=== PATIENT | male | born 1955 | race Two or more races ===

== ENCOUNTER → 2021-12-08 | Outpatient (CLI) | payer OTHER, MEDICAID | END | disposition home or self-care (01) | LOC: LAB 11:37 | PROVIDERS: ATTEND Urology | DX: N40.0 Benign prostatic hyperplasia without lower urinary tract symptoms (principal); R93.5 Abnormal findings on diagnostic imaging of other abdominal regions, including retroperitoneum | CPT/HCPCS: 84153 ==

== ENCOUNTER → 2021-12-09 | Outpatient (CLI) | payer OTHER, MEDICAID ==
[2021-12-09 13:17] LABS: Urine Bacteria FEW /hpf (None Seen); Urine Blood Negative /uL (Negative); Urine WBC 5 /hpf (0 - 3)
== END | disposition home or self-care (01) ==
LOC: LAB 12:43
PROVIDERS: ATTEND Urology
DX: N39.0 Urinary tract infection, site not specified (principal)
CPT/HCPCS: 81001; 87086

== ENCOUNTER → 2023-01-11 | Outpatient (CLI) | payer OTHER, MEDICAID ==
[2023-01-11 10:29] LABS: Basophils # (auto) 0 10 ^3/uL (0-0.2); Monocytes # (auto) 0.8 10 ^3/uL (0-1.3); Nucleated Red Blood Cells % 0.1 %; Red Blood Cells 6.47 10^6/uL (4.5-5.90)
[2023-01-11 10:32] LABS: Basophils % (auto) 0.3 % (0.0-2.0); Eosinophils # (auto) 0.3 10 ^3/uL (0-0.8); Hematocrit 48.3 % (41.0-53.0); Hemoglobin 15.7 g/dL (13.5-17.5); Lymphocytes # (auto) 2.5 10 ^3/uL (0.4-5.4); Lymphocytes % (auto) 36.1 % (10.0-50.0); Mean Corpuscular Hemoglobin 24.2 pg (28.0-32.0); Mean Corpuscular Hgb Conc. 32.5 g/dL (32.0-36.0); Mean Corpuscular Volume 74.6 fL (80.0-100.0); Neutrophils # (auto) 3.4 10 ^3/uL (1.6-8.6); Neutrophils % (auto) 48.6 % (37.0-80.0); Red Cell Distribution Width 15.7 % (11.8-14.3)
[2023-01-11 11:02] LABS: Chloride 108 mmol/L (98-107); Potassium 3.9 mmol/L (3.5-5.1); Sodium 142 mmol/L (136-145)
[2023-01-11 11:03] LABS: Anion Gap 4 (5-15); Calcium 8.8 mg/dL (8.5-10.1); Carbon Dioxide 30 mmol/L (20-30)
[2023-01-11 11:08] LABS: BUN/Creatinine Ratio 8.2 (10.0-20.0); Blood Urea Nitrogen 6 mg/dL (9-23); Glucose 100 mg/dL (74-106)
== END | disposition home or self-care (01) ==
LOC: LAB 10:14
PROVIDERS: ATTEND Urology
DX: N40.1 Benign prostatic hyperplasia with lower urinary tract symptoms (principal); R35.1 Nocturia
CPT/HCPCS: 36415; 80048; 84153; 85025

== ENCOUNTER → 2023-04-10 | Outpatient (CLI) | payer OTHER, MEDICAID ==
[~2023-04-10] MED LIST: METH2.5T PO
== END | disposition home or self-care (01) ==
LOC: XYW 09:50
PROVIDERS: ATTEND Student in an Organized Health Care Education/Training Program
DX: L60.3 Nail dystrophy (principal)
CPT/HCPCS: 93925

== ENCOUNTER 2023-04-17 06:30 | Day surgery (SDC) | payer OTHER, MEDICAID ==
[2023-04-12 11:18] LABS: Basophils # (auto) 0 10 ^3/uL (0-0.2); Basophils % (auto) 0.6 % (0.0-2.0); Eosinophils # (auto) 0.3 10 ^3/uL (0-0.8); Eosinophils % (auto) 5.1 % (0.0-7.0); Hematocrit 48.7 % (41.0-53.0); Hemoglobin 15.5 g/dL (13.5-17.5); Lymphocytes % (auto) 31.9 % (10.0-50.0); Mean Corpuscular Hemoglobin 23.3 pg (28.0-32.0); Mean Corpuscular Hgb Conc. 31.7 g/dL (32.0-36.0); Mean Corpuscular Volume 73.6 fL (80.0-100.0); Monocytes # (auto) 0.7 10 ^3/uL (0-1.3); Neutrophils # (auto) 3.3 10 ^3/uL (1.6-8.6); Neutrophils % (auto) 51.4 % (37.0-80.0); Nucleated Red Blood Cells % 0.2 %; Red Blood Cells 6.62 10^6/uL (4.5-5.90); Red Cell Distribution Width 15.7 % (11.8-14.3); White Blood Cell 6.4 10^3/uL (4.4-10.8)
[2023-04-12 11:36] LABS: INR 1.04 (0.9-1.15); Partial Thromboplastin Time 27.9 SEC (24.5-34.5); Prothrombin Time 10.9 sec (9.3-11.8)
[2023-04-12 11:44] LABS: Alanine Aminotransferase 43 U/L (7-40); Albumin 4.2 g/dL (3.2-4.8); Alkaline Phosphatase 45 U/L (46-116); Anion Gap 8 (5-15); Aspartate Aminotransferase 37 U/L (13-40); BUN/Creatinine Ratio 8.4 (10.0-20.0); Blood Urea Nitrogen 7 mg/dL (9-23); Calcium 9.4 mg/dL (8.5-10.1); Carbon Dioxide 28 mmol/L (20-30); Chloride 105 mmol/L (98-107); Glucose 98 mg/dL (74-106); Potassium 3.9 mmol/L (3.5-5.1); Sodium 141 mmol/L (136-145)
[2023-04-12 11:45] LABS: Bilirubin, Total 0.8 mg/dL (0.2-1.0); Total Protein 7.7 g/dL (5.7-8.2)
[2023-04-12 12:04] LABS: Urine Bacteria FEW /hpf (None Seen); Urine Blood Negative /uL (Negative); Urine Clarity Clear (Clear); Urine Color Yellow (Yellow); Urine Mucus FEW (None Seen); Urine Protein, UAD Negative (Negative); Urine Specific Gravity 1.021 (1.001-1.035); Urine Urobilinogen Normal (Negative); Urine WBC <1 /hpf (0 - 3); Urine pH 5.5 (5.0-8.0)
[~2023-04-17] VITALS: Ht 167.6 cm; Wt 93.0 kg
[2023-04-17] MEDS ORDERED: ceFAZolin 2 GM/D5W100ml 0 ML IV ONE (06:44)
[2023-04-17 06:50] VITALS: TEMP 98.1
[2023-04-17] MEDS ORDERED: CIPROFLOXACIN 400MG/200ML 200 ML IV ONE (07:00)
[2023-04-17] MEDS ORDERED: fentaNYL CITRATE 100 MCG/2 ML VL ONE (07:01)
[2023-04-17] MEDS ORDERED: PROPOFOL 10 MG/ML 20 ML IV ONE (07:02)
[2023-04-17] MEDS ORDERED: ONDANSETRON HCL 4 MG/2 ML VIAL ONE (07:53)
[2023-04-17] MEDS ORDERED: DexAMETHasone SOD PHOS 10MG/1ML VIAL INJ ONE (07:53)
[2023-04-17] MEDS ORDERED: ePHEDrine SULFATE 50 MG/ML AMP ONE (07:59)
[2023-04-17] MEDS ORDERED: MEPERIDINE HCL (25 MG/ML) 1ML VIAL ONE (08:16)
[2023-04-17 09:01] VITALS: O2SAT 97
[2023-04-17] MEDS ORDERED: MEPERIDINE HCL (25 MG/ML) 1ML VIAL IV PRN (09:15)
[2023-04-17] MEDS ORDERED: ONDANSETRON HCL 4 MG/2 ML VIAL IV PRN (09:15)
[2023-04-17] MEDS ORDERED: HYDROmorphone HCL 2 MG/ML VL/or syr ONE (09:27)
[2023-04-17] MEDS: HYDROmorphone HCL 2 MG/ML VL/or syr IV PRN ×2 (09:30→10:06)
[2023-04-17 10:31] VITALS: BP 122/98; PULSE 63; RESP 17; O2SAT 95
== END 2023-04-17 10:42 | disposition home or self-care (01) ==
LOC: SUR 06:30
PROVIDERS: ATTEND Urology
DX: N40.1 Benign prostatic hyperplasia with lower urinary tract symptoms (principal); N13.8 Other obstructive and reflux uropathy; Z87.891 Personal history of nicotine dependence; Z98.890 Other specified postprocedural states
CPT/HCPCS: 36415; 52601; 80053; 81001; 85025; 85610; 85730; 87086; J0744; J1100; J1170; J2175; J2405; J2704; J3010

== ENCOUNTER → 2023-05-07 | Outpatient (CLI) | payer OTHER, MEDICAID ==
[2023-05-07 17:03] LABS: Urine Amorphous Crystal FEW /hpf (None Seen); Urine Bacteria NONE SEEN /hpf (None Seen); Urine Blood 3+ /uL (Negative); Urine Clarity CLOUDY (Clear); Urine Color Red (Yellow); Urine Protein, UAD 2+ (Negative); Urine Specific Gravity 1.022 (1.001-1.035); Urine Urobilinogen Normal (Negative); Urine WBC 90 /hpf (0 - 3); Urine pH 5.5 (5.0-8.0)
== END | disposition home or self-care (01) ==
LOC: LAB 16:11
PROVIDERS: ATTEND Urology
DX: N39.0 Urinary tract infection, site not specified (principal)
CPT/HCPCS: 81001; 87086

== ENCOUNTER 2023-06-11 09:44 | Inpatient (IN) | payer OTHER, MEDICAID ==
[~2023-06-11] VITALS: Ht 167.6 cm; Wt 93.0 kg
[2023-06-11 11:34] LABS: Basophils # (auto) 0 10 ^3/uL (0-0.2); Nucleated Red Blood Cells % 0.1 %
[2023-06-11 11:36] LABS: Basophils % (auto) 0.1 % (0.0-2.0); Eosinophils # (auto) 0.1 10 ^3/uL (0-0.8); Eosinophils % (auto) 0.3 % (0.0-7.0); Hematocrit 49.1 % (41.0-53.0); Hemoglobin 15.4 g/dL (13.5-17.5); Lymphocytes # (auto) 1.5 10 ^3/uL (0.4-5.4); Lymphocytes % (auto) 7.8 % (10.0-50.0); Mean Corpuscular Hemoglobin 23.2 pg (28.0-32.0); Mean Corpuscular Hgb Conc. 31.4 g/dL (32.0-36.0); Mean Corpuscular Volume 73.9 fL (80.0-100.0); Monocytes # (auto) 1.7 10 ^3/uL (0-1.3); Neutrophils # (auto) 15.6 10 ^3/uL (1.6-8.6); Neutrophils % (auto) 82.8 % (37.0-80.0); Red Blood Cells 6.65 10^6/uL (4.5-5.90); White Blood Cell 18.9 10^3/uL (4.4-10.8)
[2023-06-11 11:39] LABS: Chloride 106 mmol/L (98-107); Potassium 3.6 mmol/L (3.5-5.1); Sodium 137 mmol/L (136-145)
[2023-06-11 11:40] LABS: Anion Gap 6 (5-15); Calcium 8.9 mg/dL (8.5-10.1); Carbon Dioxide 25 mmol/L (20-30)
[2023-06-11 11:45] LABS: BUN/Creatinine Ratio 12.1 (10.0-20.0); Blood Urea Nitrogen 11 mg/dL (9-23); Glucose 109 mg/dL (74-106)
[2023-06-11 11:50] LABS: COVID19 ANTIGEN SOFIA FIA NEGATIVE (NEGATIVE)
[2023-06-11 11:51] LABS: Rapid Influenza A Negative (Negative); Rapid Influenza B Negative (Negative)
[2023-06-11 12:17] LABS: Urine Bacteria MANY /hpf (None Seen); Urine Blood 3+ /uL (Negative); Urine Clarity CLOUDY (Clear); Urine Color Yellow (Yellow); Urine Protein, UAD 2+ (Negative); Urine Urobilinogen Normal (Negative); Urine WBC 2381 /hpf (0 - 3); Urine WBC Clumps PRESENT /hpf (None Seen); Urine pH 5.5 (5.0-8.0)
[2023-06-11] MEDS ORDERED: PROP40TA6 PO (15:11)
[2023-06-11] MEDS ORDERED: ONDANSETRON HCL 4 MG/2 ML VIAL IV PRN (15:15)
[2023-06-11] MEDS ORDERED: VANCOMYCIN PER PHARMACY 0 MG IV SCH (15:15)
[2023-06-12] VITALS (8 sets, daily range): BP systolic 91–147; BP diastolic 43–73; PULSE 57–100; RESP 16–20; TEMP 98.4–100.2; O2SAT 92–98
[2023-06-12] MEDS: SODIUM CHLORIDE 0.9% 1,000 ML IV SCH (01:15)
[2023-06-12] MEDS: CEFEPIME 1GM/ 50ML 50 ML IV SCH (04:41)
[2023-06-12] MEDS: HYDROcodone-ACET 5/325MG TAB PO PRN (05:15)
[2023-06-12 08:55] LABS: Basophils # (auto) 0 10 ^3/uL (0-0.2); Eosinophils # (auto) 0.1 10 ^3/uL (0-0.8); Eosinophils % (auto) 0.3 % (0.0-7.0); Nucleated Red Blood Cells % 0.1 %; Red Cell Distribution Width 16.2 % (11.8-14.3)
[2023-06-12 08:57] LABS: Basophils % (auto) 0.2 % (0.0-2.0); Hematocrit 49.5 % (41.0-53.0); Hemoglobin 15.6 g/dL (13.5-17.5); Lymphocytes # (auto) 3.3 10 ^3/uL (0.4-5.4); Mean Corpuscular Hemoglobin 23.4 pg (28.0-32.0); Mean Corpuscular Hgb Conc. 31.6 g/dL (32.0-36.0); Mean Corpuscular Volume 74.2 fL (80.0-100.0); Monocytes # (auto) 2.1 10 ^3/uL (0-1.3); Neutrophils # (auto) 15.3 10 ^3/uL (1.6-8.6); Neutrophils % (auto) 73.5 % (37.0-80.0); Red Blood Cells 6.68 10^6/uL (4.5-5.90); White Blood Cell 20.8 10^3/uL (4.4-10.8)
[2023-06-12 09:18] LABS: Alanine Aminotransferase 28 U/L (7-40); Albumin 4.3 g/dL (3.2-4.8); Alkaline Phosphatase 56 U/L (46-116); Aspartate Aminotransferase 26 U/L (13-40); BUN/Creatinine Ratio 8.3 (10.0-20.0); Blood Urea Nitrogen 9 mg/dL (9-23); Calcium 9.2 mg/dL (8.5-10.1); Carbon Dioxide 26 mmol/L (20-30); Glucose 144 mg/dL (74-106)
[2023-06-12 09:20] LABS: Bilirubin, Total 1.3 mg/dL (0.2-1.0); Total Protein 8.4 g/dL (5.7-8.2)
[2023-06-12 09:25] LABS: Anion Gap 4 (5-15); Chloride 106 mmol/L (98-107); Sodium 136 mmol/L (136-145)
[2023-06-12] MEDS: VANCOMYCIN 1GM/200ML 200 ML IV ONE ×2 (09:31→19:42)
[2023-06-12] MEDS: PROPRANOLOL HCL 20 MG TAB PO SCH (10:00)
[2023-06-12] MEDS: SODIUM CHLORIDE 0.9% 250 ML IV ONE (15:06)
[2023-06-12] MEDS ORDERED: LATA0.0020 EACHEYE (17:47)
[2023-06-12] MEDS ORDERED: MELO-335 PO (17:47)
[2023-06-12] MEDS ORDERED: LOSA50TA46 PO (17:47)
[2023-06-12] MEDS ORDERED: SOLI10TA39 PO (17:47)
[2023-06-12] MEDS ORDERED: DOCU-94 PO (17:47)
[2023-06-12] MEDS ORDERED: TAMS0.4C36 PO (17:47)
[2023-06-12] MEDS: ACETAMINOPHEN 325 MG TAB PO PRN (22:08)
[2023-06-13] VITALS (7 sets, daily range): BP systolic 107–130; BP diastolic 71–85; PULSE 86–95; RESP 14–18; TEMP 98–100.6; O2SAT 95–98
[2023-06-13] MEDS ORDERED: VANCOMYCIN 750mg/150ml 150 ML IV SCH (04:00)
[2023-06-13 06:09] LABS: Basophils # (auto) 0 10 ^3/uL (0-0.2); Eosinophils # (auto) 0 10 ^3/uL (0-0.8); Hematocrit 44.3 % (41.0-53.0); Hemoglobin 14.3 g/dL (13.5-17.5); Lymphocytes # (auto) 1.1 10 ^3/uL (0.4-5.4); Lymphocytes % (auto) 13.9 % (10.0-50.0); Mean Corpuscular Volume 73.4 fL (80.0-100.0); Monocytes # (auto) 0.6 10 ^3/uL (0-1.3); Neutrophils # (auto) 6.1 10 ^3/uL (1.6-8.6); White Blood Cell 7.8 10^3/uL (4.4-10.8)
[2023-06-13 06:11] LABS: Basophils % (auto) 0.1 % (0.0-2.0); Eosinophils % (auto) 0.4 % (0.0-7.0); Mean Corpuscular Hemoglobin 23.8 pg (28.0-32.0); Mean Corpuscular Hgb Conc. 32.4 g/dL (32.0-36.0); Monocytes % (auto) 7.6 % (0.0-12.0); Red Blood Cells 6.03 10^6/uL (4.5-5.90); Red Cell Distribution Width 15.6 % (11.8-14.3)
[2023-06-13 06:17] LABS: Chloride 106 mmol/L (98-107); Potassium 3.5 mmol/L (3.5-5.1); Sodium 138 mmol/L (136-145)
[2023-06-13 06:18] LABS: Anion Gap 7 (5-15); Calcium 8.6 mg/dL (8.5-10.1); Carbon Dioxide 25 mmol/L (20-30)
[2023-06-13 06:23] LABS: BUN/Creatinine Ratio 7.9 (10.0-20.0); Blood Urea Nitrogen 7 mg/dL (9-23); Glucose 97 mg/dL (74-106)
[2023-06-14 05:00] VITALS: BP 106/53; PULSE 92; RESP 18; TEMP 98; O2SAT 96
[2023-06-14 07:31] LABS: Chloride 106 mmol/L (98-107); Potassium 3.9 mmol/L (3.5-5.1); Sodium 138 mmol/L (136-145)
[2023-06-14 07:32] LABS: Anion Gap 5 (5-15); Carbon Dioxide 27 mmol/L (20-30)
[2023-06-14 07:33] LABS: Calcium 8.7 mg/dL (8.5-10.1)
[2023-06-14 07:34] LABS: Hematocrit 45.7 % (41.0-53.0); Hemoglobin 14.6 g/dL (13.5-17.5); Mean Corpuscular Hemoglobin 23.4 pg (28.0-32.0); Mean Corpuscular Hgb Conc. 31.9 g/dL (32.0-36.0); Mean Corpuscular Volume 73.3 fL (80.0-100.0); Red Blood Cells 6.23 10^6/uL (4.5-5.90); Red Cell Distribution Width 15.7 % (11.8-14.3); White Blood Cell 6.1 10^3/uL (4.4-10.8)
[2023-06-14 07:37] LABS: Glucose 100 mg/dL (74-106)
[2023-06-14 07:38] LABS: BUN/Creatinine Ratio 6.7 (10.0-20.0); Blood Urea Nitrogen 6 mg/dL (9-23)
[2023-06-14 07:47] LABS: Band Neutrophils % (manual) 0; Basophils % (manual) 0 (0.0-2.0); Blast Cells 0; Metamyelocytes % 0; Myelocytes % 0; Promyelocytes % 0; Reactive Lymphocytes 0
[2023-06-14 08:19] LABS: Eosinophils % (manual) 2 (0-7); Lymphocytes % (manual) 17 (10.0-50.0); Monocytes % (manual) 19 (0-12); Platelet Estimate Decreased
[2023-06-14 09:07] VITALS: BP 120/83; PULSE 77; RESP 18; TEMP 98.7; O2SAT 98
[2023-06-14 13:13] VITALS: BP 117/76; PULSE 86; RESP 18; TEMP 98.3; O2SAT 95
[2023-06-14 17:41] VITALS: BP 128/80; PULSE 90; RESP 18; TEMP 97.1; O2SAT 97
[2023-06-14 20:00] VITALS: PULSE 89; RESP 18; O2SAT 95
[2023-06-14 21:47] VITALS: BP 113/68; PULSE 90; RESP 20; TEMP 99.4; O2SAT 93
[2023-06-15] VITALS (7 sets, daily range): BP systolic 101–128; BP diastolic 59–79; PULSE 73–79; RESP 16–20; TEMP 97.5–98.4; O2SAT 93–98
[2023-06-15] MEDS: CEFEPIME 1GM/ 50ML 50 ML IV SCH (04:27)
[2023-06-15 05:58] LABS: Basophils # (auto) 0 10 ^3/uL (0-0.2); Basophils % (auto) 0.3 % (0.0-2.0); Eosinophils # (auto) 0.3 10 ^3/uL (0-0.8); Eosinophils % (auto) 4.2 % (0.0-7.0); Hematocrit 48.8 % (41.0-53.0); Hemoglobin 15.4 g/dL (13.5-17.5); Lymphocytes # (auto) 2.3 10 ^3/uL (0.4-5.4); Lymphocytes % (auto) 34.6 % (10.0-50.0); Mean Corpuscular Hemoglobin 23.1 pg (28.0-32.0); Mean Corpuscular Hgb Conc. 31.6 g/dL (32.0-36.0); Mean Corpuscular Volume 73.1 fL (80.0-100.0); Monocytes # (auto) 1.2 10 ^3/uL (0-1.3); Neutrophils # (auto) 2.8 10 ^3/uL (1.6-8.6); Neutrophils % (auto) 41.9 % (37.0-80.0); Nucleated Red Blood Cells % 0.1 %; Red Blood Cells 6.67 10^6/uL (4.5-5.90); Red Cell Distribution Width 15.8 % (11.8-14.3); White Blood Cell 6.6 10^3/uL (4.4-10.8)
[2023-06-15 06:15] LABS: Calcium 8.9 mg/dL (8.5-10.1); Chloride 107 mmol/L (98-107); Potassium 3.7 mmol/L (3.5-5.1); Sodium 139 mmol/L (136-145)
[2023-06-15 06:16] LABS: Anion Gap 6 (5-15); Carbon Dioxide 26 mmol/L (20-30)
[2023-06-15 06:21] LABS: BUN/Creatinine Ratio 7.7 (10.0-20.0); Blood Urea Nitrogen 6 mg/dL (9-23); Glucose 96 mg/dL (74-106)
[2023-06-15] MEDS: ERTAPENEM SOD INJ 1 GM in SODIUM CHL 0.9% 50 ML IV SCH (18:45)
[2023-06-16 05:00] VITALS: BP 130/77; PULSE 72; RESP 18; TEMP 97.9; O2SAT 97
[2023-06-16 08:02] VITALS: PULSE 81; RESP 20; O2SAT 96
[2023-06-16 09:00] VITALS: BP 130/78; PULSE 81; RESP 20; TEMP 98.6; O2SAT 96
[2023-06-16 13:00] VITALS: BP 125/76; PULSE 60; RESP 22; TEMP 98.4; O2SAT 94
[2023-06-16 17:00] VITALS: BP 96/55; PULSE 57; RESP 18; TEMP 98.4; O2SAT 96
[2023-06-16 22:00] VITALS: BP 103/70; PULSE 68; RESP 16; TEMP 97.8; O2SAT 97
[2023-06-17] VITALS (7 sets, daily range): BP systolic 99–118; BP diastolic 57–83; PULSE 74–85; RESP 16–20; TEMP 97.4–97.8; O2SAT 93–96
[2023-06-17] MEDS: DOCUSATE SOD 100 MG CAP PO PRN (09:04)
[2023-06-18 05:00] VITALS: BP 92/59; PULSE 74; RESP 17; TEMP 97.6; O2SAT 96
[2023-06-18 11:02] VITALS: BP 116/77; PULSE 89; RESP 18; TEMP 97.3; O2SAT 97
[2023-06-18 11:04] VITALS: BP 116/77; PULSE 89; RESP 18; TEMP 97.3; O2SAT 97
[2023-06-18 17:08] VITALS: BP 123/75; PULSE 75; RESP 18; TEMP 97.1; O2SAT 96
== END 2023-06-18 18:00 | disposition home health service (06) | DRG 872 ==
LOC: ER 09:44 → WEST WING 15:11 → OVERFLOW 15:11 → WEST WING 06-12 04:40
PROVIDERS: ADMIT Nurse Practitioner Family; ATTEND Nurse Practitioner Acute Care
PROC: 05HF33Z Insertion of Infusion Device into Left Cephalic Vein, Percutaneous Approach (ICD-10-PCS; principal; 2023-06-16)
DX: A41.89 Other specified sepsis (principal); Z16.12 Extended spectrum beta lactamase (ESBL) resistance; I10 Essential (primary) hypertension; N30.90 Cystitis, unspecified without hematuria; E66.9 Obesity, unspecified; E11.9 Type 2 diabetes mellitus without complications; Z20.822 Contact with and (suspected) exposure to COVID-19; Z68.32 Body mass index [BMI] 32.0-32.9, adult; Z90.79 Acquired absence of other genital organ(s); Z87.891 Personal history of nicotine dependence; Z85.038 Personal history of other malignant neoplasm of large intestine; N40.1 Benign prostatic hyperplasia with lower urinary tract symptoms
CPT/HCPCS: 36415; 76775; 80048; 80053; 80202; 81001; 83605; 85007; 85025; 85027; 87086; 87088; 87186; 87426; 87804; G0378; J1335

== ENCOUNTER 2023-11-16 12:14 | Inpatient (IN) | payer OTHER, MEDICAID ==
[~2023-11-16] VITALS: Ht 167.6 cm; Wt 88.2 kg
[~2023-11-16 12:14] MED LIST changes: +DOCU-94 PO; +LATA0.0020 EACHEYE; +LOSA-534 PO; +MELO15TA29 PO; +PROP40TA6 PO; +SOLI10TA39 PO; +TAMS0.4C36 PO
[2023-11-16 13:10] LABS: Urine Bacteria MANY /hpf (None Seen); Urine Blood 2+ /uL (Negative); Urine Clarity Turbid (Clear); Urine Mucus FEW (None Seen); Urine Protein, UAD 1+ (Negative); Urine Specific Gravity 1.023 (1.001-1.035); Urine Urobilinogen Normal (Negative); Urine WBC 637 /hpf (0 - 3); Urine pH 5.5 (5.0-9.0)
[2023-11-16] MEDS: SODIUM CHLORIDE 0.9% 500 ML IV ONE (13:21)
[2023-11-16 13:23] LABS: Urine Color Light-Yellow (Yellow)
[2023-11-16 13:44] VITALS: PULSE 109; RESP 16; O2SAT 97
[2023-11-16 14:03] LABS: Basophils # (auto) 0 10 ^3/uL (0-0.2); Basophils % (auto) 0.1 % (0.0-2.0); Eosinophils # (auto) 0 10 ^3/uL (0-0.8); Eosinophils % (auto) 0.2 % (0.0-7.0); Mean Corpuscular Hemoglobin 24.4 pg (28.0-32.0); Monocytes # (auto) 1.3 10 ^3/uL (0-1.3)
[2023-11-16 14:04] LABS: Hematocrit 48.8 % (41.0-53.0); Hemoglobin 16.2 g/dL (13.5-17.5); Lymphocytes # (auto) 1.5 10 ^3/uL (0.4-5.4); Lymphocytes % (auto) 12.4 % (10.0-50.0); Mean Corpuscular Hgb Conc. 33.1 g/dL (32.0-36.0); Mean Corpuscular Volume 73.6 fL (80.0-100.0); Monocytes % (auto) 10.9 % (0.0-12.0); Neutrophils % (auto) 76.4 % (37.0-80.0); Red Blood Cells 6.63 10^6/uL (4.5-5.90); White Blood Cell 11.8 10^3/uL (4.4-10.8)
[2023-11-16] MEDS: SODIUM CHLORIDE 0.9% 1,000 ML IV ONE (14:15)
[2023-11-16] MEDS: ONDANSETRON HCL 4 MG/2 ML VIAL IV ONE (14:15)
[2023-11-16] MEDS: cefTRIAXone 1GM/50ML D5W 50 ML IV ONE (14:16)
[2023-11-16] MEDS: MORPHINE SULFATE 4 MG/ML SYR/VIAL IV ONE (14:17)
[2023-11-16 14:20] LABS: Large Platelets FEW; Platelet Estimate Decreased
[2023-11-16] MEDS ORDERED: ONDANSETRON HCL 4 MG/2 ML VIAL IV PRN (15:00)
[2023-11-16] MEDS: ACETAMINOPHEN 325 MG TAB PO PRN (20:19)
[2023-11-16 20:20] VITALS: PULSE 103; RESP 16; O2SAT 95
[2023-11-16 23:39] VITALS: BP 140/75; PULSE 80; RESP 18; TEMP 98.3; O2SAT 91
[2023-11-17] VITALS (9 sets, daily range): BP systolic 114–146; BP diastolic 67–88; PULSE 63–90; RESP 16–20; TEMP 98.1–99.1; O2SAT 90–95
[2023-11-17] MEDS: TEMAZEPAM 15 MG CAP PO PRN (02:05)
[2023-11-17 06:46] LABS: Basophils # (auto) 0 10 ^3/uL (0-0.2); Eosinophils # (auto) 0.1 10 ^3/uL (0-0.8); Eosinophils % (auto) 0.9 % (0.0-7.0); Lymphocytes # (auto) 2.1 10 ^3/uL (0.4-5.4)
[2023-11-17 06:49] LABS: Basophils % (auto) 0.1 % (0.0-2.0); Hematocrit 45.6 % (41.0-53.0); Hemoglobin 14.8 g/dL (13.5-17.5); Mean Corpuscular Hemoglobin 24.1 pg (28.0-32.0); Mean Corpuscular Hgb Conc. 32.4 g/dL (32.0-36.0); Mean Corpuscular Volume 74.3 fL (80.0-100.0); Monocytes # (auto) 1.9 10 ^3/uL (0-1.3); Monocytes % (auto) 16.8 % (0.0-12.0); Neutrophils # (auto) 7.4 10 ^3/uL (1.6-8.6); Neutrophils % (auto) 64.2 % (37.0-80.0); Red Blood Cells 6.14 10^6/uL (4.5-5.90); White Blood Cell 11.5 10^3/uL (4.4-10.8)
[2023-11-17 06:55] LABS: Chloride 107 mmol/L (98-107); Potassium 3.8 mmol/L (3.5-5.1); Sodium 139 mmol/L (136-145)
[2023-11-17 06:56] LABS: Anion Gap 4 (5-15); Calcium 8.9 mg/dL (8.7-10.4); Carbon Dioxide 28 mmol/L (20-30)
[2023-11-17 07:01] LABS: BUN/Creatinine Ratio 10.1 (10.0-20.0); Blood Urea Nitrogen 8 mg/dL (9-23); Glucose 104 mg/dL (74-106)
[2023-11-17] MEDS: LOSARTAN POTASSIUM 50 MG TAB PO SCH (09:50)
[2023-11-17] MEDS: cefTRIAXone 1GM/50ML D5W 50 ML IV SCH (09:50)
[2023-11-17 11:53] LABS: Alanine Aminotransferase 25 U/L (7-40); Alkaline Phosphatase 44 U/L (46-116); Aspartate Aminotransferase 20 U/L (13-40)
[2023-11-17] MEDS: ERTAPENEM SOD INJ 1 GM in SODIUM CHL 0.9% 50 ML IV SCH (13:30)
[2023-11-17] MEDS: TAMSULOSIN HYDROCHLORIDE 0.4 MG CAP PO SCH (18:11)
[2023-11-18] VITALS (8 sets, daily range): BP systolic 116–148; BP diastolic 71–84; PULSE 72–92; RESP 17–20; TEMP 98–98.6; O2SAT 95–100
[2023-11-18 06:14] LABS: Basophils # (auto) 0 10 ^3/uL (0-0.2); Basophils % (auto) 0.2 % (0.0-2.0); Eosinophils # (auto) 0.2 10 ^3/uL (0-0.8); Nucleated Red Blood Cells % 0.1 %
[2023-11-18 06:27] LABS: Hematocrit 46.6 % (41.0-53.0); Hemoglobin 15.1 g/dL (13.5-17.5); Lymphocytes # (auto) 1.9 10 ^3/uL (0.4-5.4); Lymphocytes % (auto) 22.7 % (10.0-50.0); Mean Corpuscular Hemoglobin 24.2 pg (28.0-32.0); Mean Corpuscular Hgb Conc. 32.5 g/dL (32.0-36.0); Mean Corpuscular Volume 74.4 fL (80.0-100.0); Monocytes # (auto) 1.4 10 ^3/uL (0-1.3); Monocytes % (auto) 16.7 % (0.0-12.0); Neutrophils # (auto) 4.8 10 ^3/uL (1.6-8.6); Neutrophils % (auto) 58.4 % (37.0-80.0); Red Blood Cells 6.26 10^6/uL (4.5-5.90); Red Cell Distribution Width 15.8 % (11.8-14.3); White Blood Cell 8.2 10^3/uL (4.4-10.8)
[2023-11-18 07:00] LABS: Alanine Aminotransferase 21 U/L (7-40); Alkaline Phosphatase 46 U/L (46-116); Anion Gap 6 (5-15); BUN/Creatinine Ratio 9.3 (10.0-20.0); Blood Urea Nitrogen 7 mg/dL (9-23); Calcium 9.1 mg/dL (8.7-10.4); Carbon Dioxide 26 mmol/L (20-30); Chloride 105 mmol/L (98-107); Glucose 102 mg/dL (74-106); Potassium 3.6 mmol/L (3.5-5.1); Sodium 137 mmol/L (136-145)
[2023-11-18 07:01] LABS: Albumin 3.8 g/dL (3.2-4.8); Aspartate Aminotransferase 17 U/L (13-40); Bilirubin, Total 0.8 mg/dL (0.2-1.0); Total Protein 7.5 g/dL (5.7-8.2)
[2023-11-18] MEDS ORDERED: ERTAPENEM SOD INJ 1 GM in SODIUM CHL 0.9% 50 ML IV SCH (10:00)
[2023-11-18] MEDS: KETOROLAC TROMETH 30 MG/ML 1ML VIAL IV PRN (12:41)
[2023-11-18] MEDS: cefTRIAXone 1GM/50ML D5W 50 ML IV ONE (14:09)
[2023-11-19] VITALS (7 sets, daily range): BP systolic 137–155; BP diastolic 74–90; PULSE 75–96; RESP 17–18; TEMP 98–98.6; O2SAT 93–98
[2023-11-19 06:07] LABS: Alanine Aminotransferase 22 U/L (7-40); Alkaline Phosphatase 45 U/L (46-116); Anion Gap 7 (5-15); BUN/Creatinine Ratio 10.5 (10.0-20.0); Blood Urea Nitrogen 8 mg/dL (9-23); Carbon Dioxide 27 mmol/L (20-30); Chloride 105 mmol/L (98-107); Glucose 104 mg/dL (74-106); Potassium 3.6 mmol/L (3.5-5.1); Sodium 139 mmol/L (136-145)
[2023-11-19 06:08] LABS: Albumin 3.6 g/dL (3.2-4.8); Aspartate Aminotransferase 22 U/L (13-40)
[2023-11-19 06:09] LABS: Bilirubin, Total 0.6 mg/dL (0.2-1.0); Total Protein 7.3 g/dL (5.7-8.2)
[2023-11-19 06:23] LABS: Basophils # (auto) 0 10 ^3/uL (0-0.2); Basophils % (auto) 0.2 % (0.0-2.0); Hemoglobin 15.1 g/dL (13.5-17.5); Lymphocytes # (auto) 1.7 10 ^3/uL (0.4-5.4); Neutrophils # (auto) 3.6 10 ^3/uL (1.6-8.6); Nucleated Red Blood Cells % 0.1 %; White Blood Cell 6.5 10^3/uL (4.4-10.8)
[2023-11-19 06:26] LABS: Eosinophils # (auto) 0.2 10 ^3/uL (0-0.8); Eosinophils % (auto) 2.6 % (0.0-7.0); Hematocrit 46.2 % (41.0-53.0); Lymphocytes % (auto) 26.6 % (10.0-50.0); Mean Corpuscular Hemoglobin 24.3 pg (28.0-32.0); Mean Corpuscular Hgb Conc. 32.8 g/dL (32.0-36.0); Mean Corpuscular Volume 74.2 fL (80.0-100.0); Neutrophils % (auto) 55.6 % (37.0-80.0); Red Blood Cells 6.22 10^6/uL (4.5-5.90); Red Cell Distribution Width 15.9 % (11.8-14.3)
[2023-11-19] MEDS: cefTRIAXone 1GM/50ML D5W 50 ML IV SCH (08:49)
[2023-11-19 09:10] LABS: Hepatitis B Surface Antigen Negative (Negative)
[2023-11-19 09:32] LABS: Hepatitis C Antibody Negative (Negative)
[2023-11-20 01:00] VITALS: BP 133/84; PULSE 72; RESP 18; TEMP 97.7; O2SAT 92
[2023-11-20 05:00] VITALS: BP 120/79; PULSE 73; RESP 16; TEMP 97.6; O2SAT 92
[2023-11-20 05:46] LABS: Basophils # (auto) 0 10 ^3/uL (0-0.2); Eosinophils # (auto) 0.1 10 ^3/uL (0-0.8); Mean Corpuscular Hemoglobin 23.8 pg (28.0-32.0); Monocytes # (auto) 0.9 10 ^3/uL (0-1.3); Nucleated Red Blood Cells % 0.1 %; White Blood Cell 5.7 10^3/uL (4.4-10.8)
[2023-11-20 05:50] LABS: Basophils % (auto) 0.4 % (0.0-2.0); Eosinophils % (auto) 2.1 % (0.0-7.0); Hematocrit 46.5 % (41.0-53.0); Lymphocytes # (auto) 1.9 10 ^3/uL (0.4-5.4); Lymphocytes % (auto) 33.2 % (10.0-50.0); Mean Corpuscular Hgb Conc. 32.3 g/dL (32.0-36.0); Mean Corpuscular Volume 73.6 fL (80.0-100.0); Monocytes % (auto) 15.4 % (0.0-12.0); Neutrophils # (auto) 2.8 10 ^3/uL (1.6-8.6); Neutrophils % (auto) 48.9 % (37.0-80.0); Red Blood Cells 6.32 10^6/uL (4.5-5.90); Red Cell Distribution Width 15.7 % (11.8-14.3)
[2023-11-20 06:11] LABS: Alanine Aminotransferase 25 U/L (7-40); Albumin 3.6 g/dL (3.2-4.8); Alkaline Phosphatase 47 U/L (46-116); Anion Gap 5 (5-15); Aspartate Aminotransferase 21 U/L (13-40); BUN/Creatinine Ratio 15.2 (10.0-20.0); Bilirubin, Total 0.5 mg/dL (0.2-1.0); Blood Urea Nitrogen 12 mg/dL (9-23); Carbon Dioxide 31 mmol/L (20-30); Chloride 105 mmol/L (98-107); Glucose 95 mg/dL (74-106); Potassium 3.9 mmol/L (3.5-5.1); Sodium 141 mmol/L (136-145); Total Protein 6.8 g/dL (5.7-8.2)
[2023-11-20 08:00] VITALS: PULSE 90; RESP 17; O2SAT 96
[2023-11-20 09:00] VITALS: BP 124/82; PULSE 78; RESP 17; TEMP 97.9; O2SAT 91
[2023-11-20 13:00] VITALS: BP 129/86; PULSE 70; RESP 17; TEMP 97.7; O2SAT 99
[2023-11-20] MEDS ORDERED: CEFD300C2 PO (14:34)
[2023-11-20 16:15] VITALS: BP 129/86; PULSE 70; RESP 17; TEMP 97.7; O2SAT 99
== END 2023-11-20 17:18 | disposition home or self-care (01) | DRG 872 ==
LOC: ER 12:28 → OVERFLOW 14:52 → EAST 22:42
PROVIDERS: ADMIT Internal Medicine; ATTEND Emergency Medicine
DX: A41.51 Sepsis due to Escherichia coli [E. coli] (principal); N39.0 Urinary tract infection, site not specified; I10 Essential (primary) hypertension; K74.60 Unspecified cirrhosis of liver; E86.0 Dehydration; F10.10 Alcohol abuse, uncomplicated; Y90.9 Presence of alcohol in blood, level not specified; Z88.1 Allergy status to other antibiotic agents; Z79.899 Other long term (current) drug therapy; Z88.0 Allergy status to penicillin; Z87.440 Personal history of urinary (tract) infections
CPT/HCPCS: 36415; 76775; 80048; 80053; 81001; 83605; 84075; 84450; 84460; 85025; 86803; 87040; 87086; 87088; 87186; 87340; G0378; J1335; J1885; J2405

== ENCOUNTER 2024-05-07 13:06 | Inpatient (IN) | payer OTHER, MEDICAID ==
[~2024-05-07] VITALS: Ht 167.6 cm; Wt 91.9 kg
[~2024-05-07 13:06] MED LIST changes: +CEFD300C2 PO; -DOCU-94 PO; -LATA0.0020 EACHEYE; -MELO15TA29 PO; -METH2.5T PO; -SOLI10TA39 PO; -TAMS0.4C36 PO; +TAMS0.4C39 PO
--- NOTE | 2024-05-07 13:26 | ED.PDOC ---
General HPI Comments 68 y/o M, with PMHX of HLD and HTN presents to the ED for CC of painful urination. Patient's son, states that patient has been experiencing dysuria with associated symptoms of fever and weakness xdays. Patient's son relays, that patient has had similar symptoms in the past for a urinary tract infection. Patient's temperature in triage read at 100.9; patient comments on taking Motrin at 0530 this morning with no relief. Patient denies social history. Patient denies chills, body aches, or N/V/D. Time Seen by MD: 13:20 Primary Care Provider: NANCY Reviewed notes: Nurses Notes, Medications, Allergies Allergies: Coded Allergies: Amoxicillin (Verified Allergy, Unknown, 11/16/23) Home Meds Active Scripts Cefdinir (Cefdinir) 300 Mg Cap, 1 CAP PO BID for 7 Days, #14 CAP Prov:ROSA BREAUX MD 11/20/23 Reported Medications Tamsulosin Hcl (Tamsulosin Hcl) 0.4 Mg Cap, 2 CAP PO DAILY 06/12/23 Losartan Potassium (Losartan Potassium) 50 Mg Tab, 1 TAB PO DAILY 06/12/23 Propranolol HCl (Propranolol Hydrochloride) 40 Mg Tab, 1 TAB PO DAILY 06/11/23 Information Source: Patient Mode of Arrival: Ambulatory Inability to void: Moderate Timing: Days Duration: Since onset Prehospital treatment: None Symptoms: Dysuria History of: UTI Location: None Penile discharge: None Modifying factors: None associated signs and symptoms: Dysuria Past Medical History PAST MEDICAL HISTORY: High Lipids, HTN Surgical History (Other): PROSTATE Family History Family History: Reviewed,noncontributory to illness, No family hx of Cancer, No family hx of Heart ama, No family hx ofKidney ama, No family hx of Liver ama, No family hx of Lung ama, No family hx of Stroke, Family hx of DM, Family hx of HTN Social History Smoker: Non-Smoker Alcohol: Rarely Drugs: Denies Drug Use Lives In: Home Constitutional: reports: weakness; denies: chills, diaphoresis, fatigue, fever, malaise, sweats, others EENTM: denies: blurred vision, double vision, ear bleeding, ear discharge, ear drainage, ear pain, ear ringing, eye pain, eye redness, hearing loss, mouth pain, mouth swelling, nasal discharge, nose bleeding, nose congestion, nose pain, photophobia, tearing, throat pain, throat swelling, voice changes, others Respiratory: denies: cough, hemoptysis, orthopnea, SOB at rest, shortness of breath, SOB with excertion, stridor, wheezing, others Cardiovascular: denies: chest pain, dizzy spells, diaphoresis, Dyspnea on exertion, edema, irregular heart beat, left arm pain, lightheadedness, palpitations, PND, syncope, others Gastrointestinal: denies: abdomen distended, abdominal pain, blood streaked bowels, constipated, diarrhea, dysphagia, difficulty swallowing, hematemesis, melena, nausea, poor appetite, poor fluid intake, rectal bleeding, rectal pain, vomiting, others Genitourinary: reports: burning, dysuria; denies: flank pain, frequency, hematuria, incontinence, penile discharge, penile sore, pain, testicle pain, testicle swelling, urgency, others Neurological: denies: dizziness, fainting, headache, left sided numbness, left sided weakness, numbness, paresthesia, pre-existing deficit, right sided numbness, right sided weakness, seizure, speech problems, tingling, tremors, weakness, others Musculoskeletal: denies: back pain, gout, joint pain, joint swelling, muscle pain, muscle stiffness, neck pain, others Integumetry: denies: bruises, change in color, change in hair/nails, dryness, laceration, lesions, lumps, rash, wounds, others Allergic/Immunocompromised: denies: Difficulty Healing, Frequent Infections, Hives, Itching, others Hematologic/Lymphatic: denies: anemia, blood clots, easy bleeding, easy bruising, swollen glands, others Endocrine: denies: excessive hunger, excessive sweating, excessive thirst, excessive urination, flushing, intolerance to cold, intolerance to heat, unexplained weight gain, unexplained weight loss, others Psychiatric: denies: anxiety, bipolar disorder, depression, hopeless, panic disorder, schizophrenia, sleepless, suicidal, others All Other Systems: Reviewed and Negative Physical Exam General Appearance: Moderate Distress HEENT: Normal ENT Inspection, Pharynx Normal, TMs Normal Neck: Full Range of Motion, Non-Tender, Normal, Normal Inspection Respiratory: Chest Non-Tender, Lungs Clear, No Accessory Muscle Use, No Respiratory Distress, Normal Breath Sounds Cardiovascular: No Edema, No JVD, No Murmur, No Gallop, Tachycardia Breast Exam: Deferred Gastrointestinal: No Organomegaly, No Pulsatile Mass, Normal Bowel Sounds, Soft, Suprapubic, Tenderness Genitalia: Deferred Pelvic: Deferred Rectal: Deferred Extremities: No calf tenderness, Normal capillary refill, Normal inspection, Normal range of motion, Non-tender, No pedal edema Musculoskeletal : Apperance: Normal Neurologic: Alert, automotive collision estimator II-XII nml as Tested, No Motor Deficits, Normal Affect, Normal Mood, No Sensory Deficits Cerebellar Function: Normal Reflexes: Normal Skin: Dry, Normal Color, Warm Lymphatic: No Adenopathy Was a procedure done? Was a procedure done?: No Differential Diagnosis Kidney stone (Female): N/A Kidney stone (Male): Urinary obstruction, Urolithiasis, Urinary tract infection X-Ray, Labs, Meds, VS Vital Signs Date Time Temp Pulse Resp B/P (MAP) Pulse Ox O2 Delivery O2 Flow Rate FiO2 05/07/24 14:31 99.5 98 17 108/52 (70) 99 99.5 05/07/24 14:29 Room Air* 0 21 05/07/24 13:31 100.9 127 19 111/72 (85) 95 Lab Test 05/07/24 13:57 05/07/24 13:51 05/07/24 13:22 Range/Units White Blood Count 15.1 H 4.4-10.8 10^3/uL Red Blood Count 6.99 H 4.5-5.90 10^6/uL Hemoglobin 16.3 13.5-17.5 g/dL Hematocrit 51.0 41.0-53.0 % Mean Corpuscular Volume 73.0 L 80.0-100.0 fL Mean Corpuscular Hemoglobin 23.4 L 28.0-32.0 pg Mean Corpuscular Hemoglobin Concent 32.0 32.0-36.0 g/dL Red Cell Distribution Width 15.8 H 11.8-14.3 % Platelet Count 130 L 140-450 10^3/uL Mean Platelet Volume 10.1 6.9-10.8 fL Neutrophils (%) (Auto) 76.0 37.0-80.0 % Lymphocytes (%) (Auto) 10.7 10.0-50.0 % Monocytes (%) (Auto) 13.1 H 0.0-12.0 % Eosinophils (%) (Auto) 0.1 0.0-7.0 % Basophils (%) (Auto) 0.1 0.0-2.0 % Neutrophils # (Auto) 11.5 H 1.6-8.6 10 ^3/uL Lymphocytes # (Auto) 1.6 0.4-5.4 10 ^3/uL Monocytes # (Auto) 2.0 H 0-1.3 10 ^3/uL Eosinophils # (Auto) 0 0-0.8 10 ^3/uL Basophils # (Auto) 0 0-0.2 10 ^3/uL Nucleated Red Blood Cells 0.0 % Sodium Level 138 136-145 mmol/L Potassium Level 3.8 3.5-5.1 mmol/L Chloride Level 106 98-107 mmol/L Carbon Dioxide Level 24 20-31 mmol/L Anion Gap 8 5-15 Blood Urea Nitrogen 14 9-23 mg/dL Creatinine 1.05 0.700-1.30 mg/dL Glomerular Filtration Rate Calc 77 >90 mL/min BUN/Creatinine Ratio 13.3 10.0-20.0 Serum Glucose 100 74-106 mg/dL Calcium Level 9.9 8.7-10.4 mg/dL Lactic Acid Level 1.1 0.4-2.0 mmol/L Urine Color Yellow Yellow Urine Clarity Turbid H Clear Urine pH 5.5 5.0-9.0 Urine Specific [place] 1.024 1.001-1.035 Urine Protein 1+ H Negative Urine Ketones Negative Negative Urine Blood 2+ H Negative /uL Urine Nitrite 1+ H Negative Urine Bilirubin Negative Negative Urine Urobilinogen Normal Negative mg/dL Urine Leukocyte Esterase 3+ Negative /uL Urine RBC 35 0 - 3 /hpf Urine Microscopic WBC 387 H 0-3 /HPF Urine Squamous Epithelial Cells Few <5 /hpf Urine Bacteria Many H None Seen /hpf Urine Mucus Few None Seen Urine Glucose Normal Normal mg/dL Current Medications Medications (Trade) Dose Ordered Sig/Brannon Route Start Time Stop Time Status Last Admin Sodium Chloride 500 ml @ 500 mls/hr Q1H ONCE IV 05/07/24 13:30 05/07/24 14:29 DC 05/07/24 13:30 Ceftriaxone Sodium 50 ml @ 100 mls/hr ONCE ONCE IV 05/07/24 14:30 05/07/24 14:59 DC 05/07/24 14:35 IV Hep-Lock was established The patient was given a normal saline bolus of 500 cc Blood cultures x2 were drawn. Patient also had a lactic acid level done which is pending The urine test is positive for a significant UTI The patient is also febrile so we are looking at sepsis at this point The patient's CBC does show an elevated white blood cell count of 15.1 The patient was also tachycardic which makes this patient is septic The patient was being given normal saline and was given Rocephin IV piggyback The patient was admitted at this time Time of 1ST Reevaluation: 13:50 Reevaluation 1ST: Unchanged Time of 2ND Reevaluation: 16:33 Reevaluation 2ND: Unchanged Patient Education/Counseling: Diagnosis, Treatment, Prognosis Family Education/Counseling: Diagnosis, Treatment, Prognosis Departure 1 Departure Time of Disposition: 16:32 Impression: Primary Impression: Sepsis secondary to UTI Disposition: ADMITTED INPATIENT Admit to: Med Surg Condition: Fair Critical Care Note Critical Care Time?: No Stability Stability form required: Yes Unstable for transfer: ED Physician Assesment (Clinical assesment) Heart Score Heart Score: Heart Score Response (Comments) Value History N/A 0 EKG N/A 0 Age N/A 0 Risk Factors N/A 0 Troponin N/A 0 Total 0 I personally scribed for DOMINGO DOLAN MD ([email or web address]) on 05/07/24 at 13:26. Electronically submitted by Qian Sherman ([email or web address]). I personally scribed for DOMINGO DOLAN MD ([email or web address]) on 05/07/24 at 13:37. Electronically submitted by Qian Sherman ([email or web address]). DOMINGO DOLAN MD May 07, 2024 13:26
[2024-05-07] MEDS: SODIUM CHLORIDE 0.9% 500 ML IV ONE ×2 (13:30→20:57)
[2024-05-07 13:59] LABS: Urine Bacteria MANY /hpf (None Seen); Urine Blood 2+ /uL (Negative); Urine Clarity Turbid (Clear); Urine Color Yellow (Yellow); Urine Mucus FEW (None Seen); Urine Protein, UAD 1+ (Negative); Urine Specific Gravity 1.024 (1.001-1.035); Urine Squamous Epithelial Cell FEW /hpf (<5); Urine Urobilinogen Normal (Negative); Urine WBC 387 /HPF (0-3); Urine pH 5.5 (5.0-9.0)
[2024-05-07 14:25] LABS: Basophils # (auto) 0 10 ^3/uL (0-0.2); Basophils % (auto) 0.1 % (0.0-2.0); Eosinophils # (auto) 0 10 ^3/uL (0-0.8); Eosinophils % (auto) 0.1 % (0.0-7.0); Hemoglobin 16.3 g/dL (13.5-17.5); Lymphocytes # (auto) 1.6 10 ^3/uL (0.4-5.4); Lymphocytes % (auto) 10.7 % (10.0-50.0); Mean Corpuscular Hemoglobin 23.4 pg (28.0-32.0); Monocytes % (auto) 13.1 % (0.0-12.0); Neutrophils # (auto) 11.5 10 ^3/uL (1.6-8.6); Platelet Count (auto) 130 10^3/uL (140-450); Red Blood Cells 6.99 10^6/uL (4.5-5.90); Red Cell Distribution Width 15.8 % (11.8-14.3); White Blood Cell 15.1 10^3/uL (4.4-10.8)
[2024-05-07 14:29] LABS: Chloride 106 mmol/L (98-107); Potassium 3.8 mmol/L (3.5-5.1); Sodium 138 mmol/L (136-145)
[2024-05-07 14:30] LABS: Anion Gap 8 (5-15); Carbon Dioxide 24 mmol/L (20-31)
[2024-05-07 14:31] LABS: Calcium 9.9 mg/dL (8.7-10.4)
[2024-05-07] MEDS: ACETAMINOPHEN 325 MG TAB PO ONE (14:32)
[2024-05-07] MEDS: cefTRIAXone 1GM/50ML D5W 50 ML IV ONE (14:35)
[2024-05-07 14:36] LABS: BUN/Creatinine Ratio 13.3 (10.0-20.0); Blood Urea Nitrogen 14 mg/dL (9-23); Glucose 100 mg/dL (74-106)
[2024-05-07] MEDS ORDERED: ONDANSETRON HCL 4 MG/2 ML VIAL IV PRN (19:00)
[2024-05-07] MEDS ORDERED: TEMAZEPAM 15 MG CAP PO PRN (19:00)
--- NOTE | 2024-05-07 21:47 | DVHHP2 ---
History of Present Illness Reason for Visit: Dysuria History of Present Illness 68-year-old male presents for evaluation of dysuria. Patient reports a two day history of developing painful urination with intermittent fever generalized weakness. He denies abdominal pain, nausea or vomiting. No cardiac or respiratory complaints. Past Medical History Hypertension, dyslipidemia and BPH Past Surgical History Prostate surgery Family History Noncontributory Smoke: No ALCOHOL: occassional Drugs: None Lives: with Family Review of Systems Review of Systems Review of systems are currently negative otherwise addressed in HPI. Allergies: Coded Allergies: Amoxicillin (Verified Allergy, Unknown, 11/16/23) Medications Current Medications Medications Dose Ordered Sig/Brannon Route Start Time Stop Time Status Last Admin Dose Admin Temazepam 15 mg QHSP PRN PO 05/07/24 19:00 Ondansetron HCl 4 mg Q4HP PRN IV 05/07/24 19:00 Acetaminophen 650 mg Q6HP PRN PO 05/07/24 19:00 Ceftriaxone Sodium 50 ml @ 100 mls/hr DAILY@09 IV 05/08/24 09:00 Tamsulosin HCl 0.4 mg QPM PO 05/08/24 18:00 Exam Vital Signs Vital Signs Date Time Temp Pulse Resp B/P (MAP) Pulse Ox O2 Delivery O2 Flow Rate FiO2 05/07/24 14:31 99.5 98 17 108/52 (70) 99 99.5 05/07/24 14:29 Room Air* 0 21 Exam Gen: 68-year-old male in mild distress Skin: Warm, dry, normal color and texture, no rash. HEENT: Normocephalic atraumatic, mucous membranes moist and pink. Neck: Cervical and supraclavicular nodes normal without enlargement, trachea is midline, thyroid gland is normal without masses. Pulmonary: Clear to auscultation and percussion bilaterally. Cardiac: Regular rate and rhythm. No murmur Abdomen: Soft, nontender, nondistended, bowel sounds present all 4 quadrants, no guarding, no rigidity, no organomegaly. Extremities: No cyanosis, clubbing, no edema Neuro: Cranial nerves II through XII grossly intact, normal affect and speech, no focal motor deficits. Labs/Xrays Labs Test 05/07/24 19:17 05/07/24 13:57 05/07/24 13:22 Range/Units Lactic Acid Level 1.8 0.4-2.0 mmol/L White Blood Count 15.1 H 4.4-10.8 10^3/uL Red Blood Count 6.99 H 4.5-5.90 10^6/uL Hemoglobin 16.3 13.5-17.5 g/dL Hematocrit 51.0 41.0-53.0 % Mean Corpuscular Volume 73.0 L 80.0-100.0 fL Mean Corpuscular Hemoglobin 23.4 L 28.0-32.0 pg Mean Corpuscular Hemoglobin Concent 32.0 32.0-36.0 g/dL Red Cell Distribution Width 15.8 H 11.8-14.3 % Platelet Count 130 L 140-450 10^3/uL Mean Platelet Volume 10.1 6.9-10.8 fL Neutrophils (%) (Auto) 76.0 37.0-80.0 % Lymphocytes (%) (Auto) 10.7 10.0-50.0 % Monocytes (%) (Auto) 13.1 H 0.0-12.0 % Eosinophils (%) (Auto) 0.1 0.0-7.0 % Basophils (%) (Auto) 0.1 0.0-2.0 % Neutrophils # (Auto) 11.5 H 1.6-8.6 10 ^3/uL Lymphocytes # (Auto) 1.6 0.4-5.4 10 ^3/uL Monocytes # (Auto) 2.0 H 0-1.3 10 ^3/uL Eosinophils # (Auto) 0 0-0.8 10 ^3/uL Basophils # (Auto) 0 0-0.2 10 ^3/uL Nucleated Red Blood Cells 0.0 % Sodium Level 138 136-145 mmol/L Potassium Level 3.8 3.5-5.1 mmol/L Chloride Level 106 98-107 mmol/L Carbon Dioxide Level 24 20-31 mmol/L Anion Gap 8 5-15 Blood Urea Nitrogen 14 9-23 mg/dL Creatinine 1.05 0.700-1.30 mg/dL Glomerular Filtration Rate Calc 77 >90 mL/min BUN/Creatinine Ratio 13.3 10.0-20.0 Serum Glucose 100 74-106 mg/dL Calcium Level 9.9 8.7-10.4 mg/dL Urine Color Yellow Yellow Urine Clarity Turbid H Clear Urine pH 5.5 5.0-9.0 Urine Specific [place] 1.024 1.001-1.035 Urine Protein 1+ H Negative Urine Ketones Negative Negative Urine Blood 2+ H Negative /uL Urine Nitrite 1+ H Negative Urine Bilirubin Negative Negative Urine Urobilinogen Normal Negative mg/dL Urine Leukocyte Esterase 3+ Negative /uL Urine RBC 35 0 - 3 /hpf Urine Microscopic WBC 387 H 0-3 /HPF Urine Squamous Epithelial Cells Few <5 /hpf Urine Bacteria Many H None Seen /hpf Urine Mucus Few None Seen Urine Glucose Normal Normal mg/dL Assessment/Plan Assessment/Plan Assessment Sepsis Complicated UTI Hypotension Admit the patient to Med surge to the hospitalist Memo Resume home medications Maintenance IV fluids Continue treatment per orders. Plan discussed with: Patient My Orders Orders - ROSA RHODES Procedure Category Date Status Time Basic Metabolic Panel LAB 05/08/24 Verified 04:00 Admit ADMIT 05/07/24 Transmitted 18:53 Temazepam (Restoril) PHA 05/07/24 In Process 19:00 Ondansetron Hcl PHA 05/07/24 In Process (Zofran) 19:00 Complete Blood Count LAB 05/08/24 Verified 04:00 Cardiac DIET 05/08/24 Transmitted Diet-2gna,Lofat,Lochol Breakfast Condition: Stable JUDY 05/07/24 In Process 18:53 Acetaminophen Tablet PHA 05/07/24 In Process (Tylenol Tablet) 19:00 Bedrest With Bathroom JUDY 05/07/24 In Process Privileg 18:53 Urine Bacterial LINDA 05/07/24 In Process Culture 18:53 Ceftriaxone 1gm/50ml PHA 05/08/24 In Process D5w (Rocephin) 09:00 Tamsulosin PHA 05/08/24 In Process Hydrochloride (Flomax) 18:00 Date of Service: May 07, 2024 Billing Provider: ROSA RHODES Common Visit Codes: [id number] INP/OBS CARE (HIGH) ROSA RHODES May 07, 2024 21:47
[2024-05-08 00:37] VITALS: BP 121/62; PULSE 107; RESP 17; TEMP 98.6; O2SAT 93
[2024-05-08] MEDS: ACETAMINOPHEN 325 MG TAB PO PRN (01:13)
[2024-05-08 05:44] LABS: Hemoglobin 14.9 g/dL (13.5-17.5)
[2024-05-08 05:54] LABS: Anion Gap 7 (5-15); Basophils # (auto) 0 10 ^3/uL (0-0.2); Basophils % (auto) 0.1 % (0.0-2.0); Carbon Dioxide 25 mmol/L (20-31); Chloride 106 mmol/L (98-107); Eosinophils # (auto) 0 10 ^3/uL (0-0.8); Eosinophils % (auto) 0.2 % (0.0-7.0); Hematocrit 45.9 % (41.0-53.0); Lymphocytes # (auto) 2.3 10 ^3/uL (0.4-5.4); Lymphocytes % (auto) 17.4 % (10.0-50.0); Mean Corpuscular Hemoglobin 23.7 pg (28.0-32.0); Mean Corpuscular Hgb Conc. 32.5 g/dL (32.0-36.0); Mean Corpuscular Volume 73.1 fL (80.0-100.0); Monocytes # (auto) 1.9 10 ^3/uL (0-1.3); Monocytes % (auto) 14.8 % (0.0-12.0); Neutrophils # (auto) 8.8 10 ^3/uL (1.6-8.6); Neutrophils % (auto) 67.5 % (37.0-80.0); Platelet Count (auto) 103 10^3/uL (140-450); Red Blood Cells 6.28 10^6/uL (4.5-5.90); Red Cell Distribution Width 15.7 % (11.8-14.3); Sodium 138 mmol/L (136-145); White Blood Cell 13.1 10^3/uL (4.4-10.8)
[2024-05-08 06:00] LABS: BUN/Creatinine Ratio 12.8 (10.0-20.0); Blood Urea Nitrogen 12 mg/dL (9-23); Glucose 113 mg/dL (74-106); Potassium 3.3 mmol/L (3.5-5.1)
[2024-05-08 06:25] VITALS: BP 118/85; PULSE 84; RESP 16; TEMP 98.2; O2SAT 92
[2024-05-08 06:54] LABS: Hypochromia Moderate; Large Platelets FEW; Platelet Estimate Decreased
[2024-05-08 09:30] VITALS: BP 119/65; PULSE 88; RESP 16; TEMP 98.6; O2SAT 95
[2024-05-08] MEDS: cefTRIAXone 1GM/50ML D5W 50 ML IV SCH (11:18)
[2024-05-08 15:44] VITALS: BP 114/61; PULSE 90; RESP 16; TEMP 98; O2SAT 96
--- NOTE | 2024-05-08 15:54 | DVHPN2 ---
Subjective Patient continues to report having suprapubic pain, fevers, chills. Reviewed: Care Plan, H&P, Labs, Medications Changes from previous H/P or p: No Changes General: Per HPI Objective Vitals Vital Signs Date Time Temp Pulse Resp B/P (MAP) Pulse Ox O2 Delivery O2 Flow Rate FiO2 05/08/24 15:44 98.0 90 16 114/61 (78) 96 98.0 05/08/24 00:36 Room Air* 0 21 General Appearance: Alert, Oriented X3, Cooperative, mild distress HEENT: Atraumatic, PERRLA Lungs: Clear to auscultation, Normal air movement Cardiovascular: Normal S1, Normal S2 Abdomen: Normal bowel sounds, Soft Musculoskeletal: Normal sensory function, Normal motor function Neuro: Normal gait, Normal speech Psych/Mental Status: Mental status NL, Mood NL Medications Current Medications Medications Dose Ordered Sig/Brannon Route Start Time Stop Time Status Last Admin Dose Admin Temazepam 15 mg QHSP PRN PO 05/07/24 19:00 Ondansetron HCl 4 mg Q4HP PRN IV 05/07/24 19:00 Acetaminophen 650 mg Q6HP PRN PO 05/07/24 19:00 05/08/24 01:13 650 MG Tamsulosin HCl 0.4 mg QPM PO 05/08/24 18:00 Meropenem 50 ml @ 17 mls/hr Q8HR IV 05/08/24 22:00 Laboratory Results Laboratory Tests 05/08/24 04:52 Chemistry Test 05/08/24 04:52 Calcium Level 9.0 mg/dL (8.7-10.4) Urinalysis Test 05/07/24 13:22 Urine Color Yellow (Yellow) Urine Clarity Turbid (Clear) H Urine pH 5.5 (5.0-9.0) Urine Specific [place] 1.024 (1.001-1.035) Urine Protein 1+ (Negative) H Urine Ketones Negative (Negative) Urine Blood 2+ /uL (Negative) H Urine Nitrite 1+ (Negative) H Urine Bilirubin Negative (Negative) Urine Urobilinogen Normal mg/dL (Negative) Urine Leukocyte Esterase 3+ /uL (Negative) Urine RBC 35 /hpf (0 - 3) Urine Microscopic WBC 387 /HPF (0-3) H Urine Squamous Epithelial Cells Few /hpf (<5) Urine Bacteria Many /hpf (None Seen) H Urine Mucus Few (None Seen) Urine Glucose Normal mg/dL (Normal) Microbiology Microbiology Date/Time Source Procedure Growth Status 05/07/24 13:57 Blood Blood Culture - Preliminary NO GROWTH AFTER 24 HOURS OF INCUBATION. Resulted 05/07/24 13:22 Voided Urine Urine Culture - Preliminary Resulted Labs and/or images reviewed: Labs reviewed by me, Image(s) reviewed by me Assessment/Plan Assessment/Plan Impression: -sepsis -complicated cystitis -obesity -dyslipidemia -BPH Plan: -history of the patient includes ESBL in the urine. Change antibiotic therapy to Merrem panel -potassium replacement -gentle IV hydration -urine culture -repeat labs in a.m. Total time spent with patient discussing and formulating plan of care: 35 minutes. This medical document was created using an electronic medical record system with [employer] dictation system. Although this document has been carefully reviewed, there may still be some phonetic and typographical errors. These areas are purely typographical due to imperfections of the software programs, and do not reflect any compromise in the patient's medical care. Plan discussed with: Patient, Other (RN) My Orders Orders - MUKESH LUI NP Procedure Category Date Status Time Meropenem 1gm Ivpb PHA 05/08/24 In Process (Merrem 1gm/ Ns) 22:00 Sod Chl 0.9%/ Kcl PHA 05/08/24 In Process 40meq 14:45 Meropenem 1gm Ivpb PHA 05/08/24 In Process (Merrem 1gm/ Ns) 15:15 Date of Service: May 08, 2024 Billing Provider: MUKESH LUI NP Common Visit Codes: [id number] INP/OBS CARE(HIGH) MUKESH LUI NP May 08, 2024 15:54
[2024-05-08] MEDS: MEROPENEM 1GM IVPB 50 ML IV ONE (16:37)
[2024-05-08] MEDS: SOD CHL 0.9%/ KCL 40MEQ 1,000 ML IV ONE (16:37)
[2024-05-08 16:43] VITALS: BP 139/70; PULSE 86; RESP 18; TEMP 98.7; O2SAT 96
[2024-05-08] MEDS: TAMSULOSIN HYDROCHLORIDE 0.4 MG CAP PO SCH (18:13)
[2024-05-08 21:00] VITALS: BP 128/68; PULSE 81; RESP 18; TEMP 99.9; O2SAT 99
[2024-05-08] MEDS: MEROPENEM 1GM IVPB 50 ML IV SCH (21:11)
[2024-05-09] VITALS (10 sets, daily range): BP systolic 108–130; BP diastolic 53–80; PULSE 76–92; RESP 16–19; TEMP 97.8–99.4; O2SAT 92–99
--- NOTE | 2024-05-09 11:30 | DVHPN2 ---
Subjective Patient continues to report having suprapubic pain, fevers, chills. Reviewed: Care Plan, H&P, Labs, Medications Changes from previous H/P or p: No Changes General: Per HPI Objective Vitals Vital Signs Date Time Temp Pulse Resp B/P (MAP) Pulse Ox O2 Delivery O2 Flow Rate FiO2 05/09/24 09:00 98.2 86 18 111/53 (72) 96 98.2 05/09/24 08:00 Room Air* 0 21 Intake/Output Intake and Output 05/09/24 07:00 Intake Total 850 ml Balance 850 ml Intake Oral 650 ml IV Total 200 ml # Voids 6 General Appearance: Alert, Oriented X3, Cooperative, mild distress HEENT: Atraumatic, PERRLA Lungs: Clear to auscultation, Normal air movement Cardiovascular: Normal S1, Normal S2 Abdomen: Normal bowel sounds, Soft Musculoskeletal: Normal sensory function, Normal motor function Neuro: Normal gait, Normal speech Psych/Mental Status: Mental status NL, Mood NL Medications Current Medications Medications Dose Ordered Sig/Brannon Route Start Time Stop Time Status Last Admin Dose Admin Temazepam 15 mg QHSP PRN PO 05/07/24 19:00 Ondansetron HCl 4 mg Q4HP PRN IV 05/07/24 19:00 Acetaminophen 650 mg Q6HP PRN PO 05/07/24 19:00 05/08/24 01:13 650 MG Tamsulosin HCl 0.4 mg QPM PO 05/08/24 18:00 05/08/24 18:13 0.4 MG Meropenem 50 ml @ 17 mls/hr Q8HR IV 05/08/24 22:00 05/09/24 05:34 17 MLS/HR Laboratory Results Laboratory Tests 05/08/24 04:52 Urinalysis Test 05/07/24 13:22 Urine Color Yellow (Yellow) Urine Clarity Turbid (Clear) H Urine pH 5.5 (5.0-9.0) Urine Specific [place] 1.024 (1.001-1.035) Urine Protein 1+ (Negative) H Urine Ketones Negative (Negative) Urine Blood 2+ /uL (Negative) H Urine Nitrite 1+ (Negative) H Urine Bilirubin Negative (Negative) Urine Urobilinogen Normal mg/dL (Negative) Urine Leukocyte Esterase 3+ /uL (Negative) Urine RBC 35 /hpf (0 - 3) Urine Microscopic WBC 387 /HPF (0-3) H Urine Squamous Epithelial Cells Few /hpf (<5) Urine Bacteria Many /hpf (None Seen) H Urine Mucus Few (None Seen) Urine Glucose Normal mg/dL (Normal) Microbiology Microbiology Date/Time Source Procedure Growth Status 05/07/24 13:57 Blood Blood Culture - Preliminary NO GROWTH AFTER 24 HOURS OF INCUBATION. Resulted 05/07/24 13:22 Voided Urine Urine Culture - Preliminary Resulted Labs and/or images reviewed: Labs reviewed by me, Image(s) reviewed by me Assessment/Plan Assessment/Plan Impression: -sepsis -complicated cystitis -obesity -dyslipidemia -BPH Plan: -events: Patient states that his symptoms have improved. Preliminary urine culture with greater than [id number] of Gram-negative rods. -continue new ertapenem -start finasteride -check PSA, kidney ultrasound -potassium replacement -gentle IV hydration -urine culture -repeat labs in a.m. Total time spent with patient discussing and formulating plan of care: 35 minutes. This medical document was created using an electronic medical record system with [employer] dictation system. Although this document has been carefully reviewed, there may still be some phonetic and typographical errors. These areas are purely typographical due to imperfections of the software programs, and do not reflect any compromise in the patient's medical care. Plan discussed with: Patient, Other (rn) My Orders Orders - MUKESH LUI NP Procedure Category Date Status Time Meropenem 1gm Ivpb PHA 05/08/24 In Process (Merrem 1gm/ Ns) 22:00 Basic Metabolic Panel LAB 05/10/24 Verified 05:00 Basic Metabolic Panel LAB 05/11/24 Verified 05:00 Complete Blood Count LAB 05/10/24 Verified 05:00 Complete Blood Count LAB 05/11/24 Verified 05:00 Date of Service: May 09, 2024 Billing Provider: MUKESH LUI NP Common Visit Codes: [id number] INP/OBS CARE(HIGH) MUKESH LUI NP May 09, 2024 11:30
--- NOTE | 2024-05-09 12:02 | DVH ---
RENAL ULTRASOUND CLINICAL HISTORY: Chronic UTI, BPH TECHNIQUE: Multiple ultrasound images of the kidneys and bladder were obtained. COMPARISON: US KIDNEY on DOS: 11/17/23, US KIDNEY on DOS: 06/11/23 FINDINGS: The right kidney measures 12 cm in length. The left kidney measures 11.3 cm. The kidneys demonstrate appropriate echotexture and cortical thickness without evidence of a discrete renal lesion, nephrolit hiasis or hydronephrosis. The bladder appears within normal limits with a prevoid volume measuring 111 cc. The calculated prost ate volume is 43 cc. IMPRESSION: 1. Unremarkable renal ultrasound. 2. Mild prostatomegaly. HS:Y
[2024-05-10] VITALS (8 sets, daily range): BP systolic 114–127; BP diastolic 7–77; PULSE 67–87; RESP 17–19; TEMP 97.7–98.2; O2SAT 92–97
[2024-05-10 06:04] LABS: Basophils # (auto) 0 10 ^3/uL (0-0.2); Basophils % (auto) 0.3 % (0.0-2.0); Eosinophils # (auto) 0.2 10 ^3/uL (0-0.8); Eosinophils % (auto) 2.6 % (0.0-7.0); Hematocrit 44.3 % (41.0-53.0); Hemoglobin 14.4 g/dL (13.5-17.5); Lymphocytes # (auto) 1.8 10 ^3/uL (0.4-5.4); Lymphocytes % (auto) 26.4 % (10.0-50.0); Mean Corpuscular Hemoglobin 23.7 pg (28.0-32.0); Mean Corpuscular Hgb Conc. 32.6 g/dL (32.0-36.0); Mean Corpuscular Volume 72.7 fL (80.0-100.0); Monocytes # (auto) 1.1 10 ^3/uL (0-1.3); Monocytes % (auto) 15.3 % (0.0-12.0); Neutrophils # (auto) 3.8 10 ^3/uL (1.6-8.6); Neutrophils % (auto) 55.4 % (37.0-80.0); Nucleated Red Blood Cells % 0.1 %; Platelet Count (auto) 133 10^3/uL (140-450); Red Blood Cells 6.08 10^6/uL (4.5-5.90); Red Cell Distribution Width 15.3 % (11.8-14.3); White Blood Cell 6.9 10^3/uL (4.4-10.8)
[2024-05-10 06:17] LABS: Anion Gap 8 (5-15); Calcium 9.1 mg/dL (8.7-10.4); Carbon Dioxide 27 mmol/L (20-31); Chloride 103 mmol/L (98-107); Potassium 3.6 mmol/L (3.5-5.1); Sodium 138 mmol/L (136-145)
[2024-05-10 06:23] LABS: BUN/Creatinine Ratio 12.9 (10.0-20.0); Blood Urea Nitrogen 11 mg/dL (9-23); Glucose 100 mg/dL (74-106)
[2024-05-10 08:06] LABS: PSA Free 0.27 ng/mL; Prostate Specific Antigen 1.7 ng/mL (0.0-4.0)
[2024-05-10] MEDS: FINASTERIDE 5 MG TAB PO SCH (08:06)
--- NOTE | 2024-05-10 12:55 | DVHPN2 ---
Reviewed: Care Plan, H&P, Labs, Medications Changes from previous H/P or p: No Changes General: Per HPI Objective Vitals Vital Signs Date Time Temp Pulse Resp B/P (MAP) Pulse Ox O2 Delivery O2 Flow Rate FiO2 05/10/24 08:37 97.7 67 17 121/68 (85) 93 97.7 05/10/24 08:00 Room Air* 0 21 Intake/Output Intake and Output 05/10/24 07:00 Intake Total 2022 ml Output Total 1 ml Balance 2021 ml Intake Oral 1922 ml IV Total 100 ml Output Stool Total 1 ml # Voids 4 General Appearance: Alert, Oriented X3, Cooperative, mild distress HEENT: Atraumatic, PERRLA Lungs: Clear to auscultation, Normal air movement Cardiovascular: Normal S1, Normal S2 Abdomen: Normal bowel sounds, Soft Musculoskeletal: Normal sensory function, Normal motor function Neuro: Normal gait, Normal speech Psych/Mental Status: Mental status NL, Mood NL Medications Current Medications Medications Dose Ordered Sig/Brannon Route Start Time Stop Time Status Last Admin Dose Admin Temazepam 15 mg QHSP PRN PO 05/07/24 19:00 Ondansetron HCl 4 mg Q4HP PRN IV 05/07/24 19:00 Acetaminophen 650 mg Q6HP PRN PO 05/07/24 19:00 05/08/24 01:13 650 MG Tamsulosin HCl 0.4 mg QPM PO 05/08/24 18:00 05/09/24 18:11 0.4 MG Meropenem 50 ml @ 17 mls/hr Q8HR IV 05/08/24 22:00 05/10/24 06:36 17 MLS/HR Finasteride 5 mg DAILY PO 05/10/24 10:00 05/10/24 08:06 5 MG Laboratory Results Laboratory Tests 05/10/24 04:57 Chemistry Test 05/10/24 04:57 Calcium Level 9.1 mg/dL (8.7-10.4) Urinalysis Test 05/07/24 13:22 Urine Color Yellow (Yellow) Urine Clarity Turbid (Clear) H Urine pH 5.5 (5.0-9.0) Urine Specific [place] 1.024 (1.001-1.035) Urine Protein 1+ (Negative) H Urine Ketones Negative (Negative) Urine Blood 2+ /uL (Negative) H Urine Nitrite 1+ (Negative) H Urine Bilirubin Negative (Negative) Urine Urobilinogen Normal mg/dL (Negative) Urine Leukocyte Esterase 3+ /uL (Negative) Urine RBC 35 /hpf (0 - 3) Urine Microscopic WBC 387 /HPF (0-3) H Urine Squamous Epithelial Cells Few /hpf (<5) Urine Bacteria Many /hpf (None Seen) H Urine Mucus Few (None Seen) Urine Glucose Normal mg/dL (Normal) Microbiology Microbiology Date/Time Source Procedure Growth Status 05/07/24 13:57 Blood Blood Culture - Preliminary NO GROWTH AFTER 48 HOURS OF INCUBATION. Resulted 05/07/24 13:22 Voided Urine Urine Culture - Final Escherichia coli Complete Labs and/or images reviewed: Labs reviewed by me, Image(s) reviewed by me Assessment/Plan Assessment/Plan Covering for nurse practitioner Luis Gonzalez -sepsis secondary to urinary tract infection -complicated cystitis with E coli, continue meropenem q.8 hours -obesity -dyslipidemia -BPH Recurrent urinary tract infections Midline ordered Plan discussed with: Patient Date of Service: May 10, 2024 Billing Provider: ANGELICA WEINBERG MD Common Visit Codes: [id number] INP/OBS CARE(HIGH) ANGELICA WEINBERG MD May 10, 2024 12:55
[2024-05-10 23:30] LABS: COVID19 ANTIGEN SOFIA FIA NEGATIVE (NEGATIVE)
[2024-05-11 01:24] VITALS: BP 142/79; PULSE 85; RESP 21; TEMP 98; O2SAT 94
[2024-05-11 05:00] VITALS: BP 145/78; PULSE 72; RESP 19; TEMP 98; O2SAT 97
[2024-05-11 06:52] LABS: Basophils # (auto) 0 10 ^3/uL (0-0.2); Eosinophils # (auto) 0.2 10 ^3/uL (0-0.8); Lymphocytes # (auto) 2.1 10 ^3/uL (0.4-5.4); Neutrophils # (auto) 3.7 10 ^3/uL (1.6-8.6); Nucleated Red Blood Cells % 0.1 %
[2024-05-11 06:55] LABS: Basophils % (auto) 0.4 % (0.0-2.0); Eosinophils % (auto) 2.4 % (0.0-7.0); Hematocrit 44.5 % (41.0-53.0); Hemoglobin 14.6 g/dL (13.5-17.5); Lymphocytes % (auto) 30.4 % (10.0-50.0); Mean Corpuscular Hemoglobin 23.9 pg (28.0-32.0); Mean Corpuscular Hgb Conc. 32.7 g/dL (32.0-36.0); Mean Corpuscular Volume 72.9 fL (80.0-100.0); Monocytes % (auto) 13.8 % (0.0-12.0); Platelet Count (auto) 164 10^3/uL (140-450); Red Blood Cells 6.11 10^6/uL (4.5-5.90); Red Cell Distribution Width 15.1 % (11.8-14.3)
[2024-05-11 07:06] LABS: Alanine Aminotransferase 21 U/L (7-40); Albumin 4.1 g/dL (3.2-4.8); Alkaline Phosphatase 50 U/L (46-116); Anion Gap 9 (5-15); Aspartate Aminotransferase 24 U/L (13-40); BUN/Creatinine Ratio 9.8 (10.0-20.0); Calcium 9.3 mg/dL (8.7-10.4); Carbon Dioxide 27 mmol/L (20-31); Chloride 103 mmol/L (98-107); Glucose 85 mg/dL (74-106); Potassium 3.7 mmol/L (3.5-5.1); Sodium 139 mmol/L (136-145); Total Protein 7.3 g/dL (5.7-8.2)
[2024-05-11 07:08] LABS: Blood Urea Nitrogen 8 mg/dL (9-23)
[2024-05-11 07:11] LABS: Bilirubin, Total 0.5 mg/dL (0.2-1.0)
[2024-05-11 08:00] VITALS: PULSE 64; RESP 18; O2SAT 92
[2024-05-11 09:00] VITALS: BP 145/65; PULSE 78; RESP 20; TEMP 97.7; O2SAT 96
--- NOTE | 2024-05-11 09:13 | DVHPN2 ---
Reviewed: Care Plan, H&P, Labs, Medications Changes from previous H/P or p: No Changes General: Per HPI Objective Vitals Vital Signs Date Time Temp Pulse Resp B/P (MAP) Pulse Ox O2 Delivery O2 Flow Rate FiO2 05/11/24 05:00 98.0 72 19 145/78 (100) 97 98.0 05/10/24 20:00 Room Air* 0 21 Intake/Output Intake and Output 05/11/24 07:00 Intake Total 600 ml Balance 600 ml Intake Oral 500 ml IV Total 100 ml # Voids 11 # Bowel Movements 3 General Appearance: Alert, Oriented X3, Cooperative, mild distress HEENT: Atraumatic, PERRLA Lungs: Clear to auscultation, Normal air movement Cardiovascular: Normal S1, Normal S2 Abdomen: Normal bowel sounds, Soft Musculoskeletal: Normal sensory function, Normal motor function Neuro: Normal gait, Normal speech Psych/Mental Status: Mental status NL, Mood NL Medications Current Medications Medications Dose Ordered Sig/Brannon Route Start Time Stop Time Status Last Admin Dose Admin Temazepam 15 mg QHSP PRN PO 05/07/24 19:00 Ondansetron HCl 4 mg Q4HP PRN IV 05/07/24 19:00 Acetaminophen 650 mg Q6HP PRN PO 05/07/24 19:00 05/08/24 01:13 650 MG Tamsulosin HCl 0.4 mg QPM PO 05/08/24 18:00 05/10/24 16:05 0.4 MG Meropenem 50 ml @ 17 mls/hr Q8HR IV 05/08/24 22:00 05/11/24 05:55 17 MLS/HR Finasteride 5 mg DAILY PO 05/10/24 10:00 05/11/24 08:15 5 MG Laboratory Results Laboratory Tests 05/11/24 05:02 Chemistry Test 05/11/24 05:02 Albumin 4.1 g/dL (3.2-4.8) Calcium Level 9.3 mg/dL (8.7-10.4) Total Protein 7.3 g/dL (5.7-8.2) LFT Test 05/11/24 05:02 Alanine Aminotransferase (ALT) 21 U/L (7-40) Alkaline Phosphatase 50 U/L (46-116) Aspartate Amino Transferase (AST) 24 U/L (13-40) Total Bilirubin 0.5 mg/dL (0.2-1.0) Urinalysis Test 05/07/24 13:22 Urine Color Yellow (Yellow) Urine Clarity Turbid (Clear) H Urine pH 5.5 (5.0-9.0) Urine Specific [place] 1.024 (1.001-1.035) Urine Protein 1+ (Negative) H Urine Ketones Negative (Negative) Urine Blood 2+ /uL (Negative) H Urine Nitrite 1+ (Negative) H Urine Bilirubin Negative (Negative) Urine Urobilinogen Normal mg/dL (Negative) Urine Leukocyte Esterase 3+ /uL (Negative) Urine RBC 35 /hpf (0 - 3) Urine Microscopic WBC 387 /HPF (0-3) H Urine Squamous Epithelial Cells Few /hpf (<5) Urine Bacteria Many /hpf (None Seen) H Urine Mucus Few (None Seen) Urine Glucose Normal mg/dL (Normal) Microbiology Microbiology Date/Time Source Procedure Growth Status 05/07/24 13:57 Blood Blood Culture - Preliminary NO GROWTH AFTER 72 HOURS OF INCUBATION. Resulted 05/07/24 13:22 Voided Urine Urine Culture - Final Escherichia coli Complete Labs and/or images reviewed: Labs reviewed by me, Image(s) reviewed by me Assessment/Plan Assessment/Plan Covering for nurse practitioner Luis Gonzalez -sepsis secondary to urinary tract infection -complicated cystitis with E coli, continue meropenem q.8 hours -obesity -dyslipidemia -BPH status post surgery Recurrent urinary tract infections Midline in place Discussed with the patient and his son [phone] on the phone and they are agreeable for the SNF placement for IV antibiotics for two weeks Plan discussed with: Patient My Orders Orders - ANGELICA WEINBERG MD Procedure Category Date Status Time Insert Midline ORDERS 05/10/24 Transmitted 12:55 Insert Midline ORDERS 05/10/24 Transmitted 12:55 Pt Request For Service PT 05/10/24 Logged 12:56 * Sqe CONS 05/10/24 Transmitted Consult Date of Service: May 11, 2024 Billing Provider: ANGELICA WEINBERG MD Common Visit Codes: [id number] INP/OBS CARE(HIGH) ANGELICA WEINBERG MD May 11, 2024 09:13
--- NOTE | 2024-05-11 09:16 | DVHDS2 ---
Discharge Summary Date of Admission May 07, 2024 at 18:53 Date of Discharge: May 11, 2024 Admitting Diagnosis Sepsis secondary to urinary tract infection Wounds: None Labs/Diagnostic Data: Laboratory Results Test 05/11/24 05:02 05/10/24 23:05 05/09/24 12:34 05/08/24 04:52 White Blood Count 7.0 10^3/uL (4.4-10.8) Red Blood Count 6.11 10^6/uL (4.5-5.90) Hemoglobin 14.6 g/dL (13.5-17.5) Hematocrit 44.5 % (41.0-53.0) Mean Corpuscular Volume 72.9 fL (80.0-100.0) Mean Corpuscular Hemoglobin 23.9 pg (28.0-32.0) Mean Corpuscular Hemoglobin Concent 32.7 g/dL (32.0-36.0) Red Cell Distribution Width 15.1 % (11.8-14.3) Platelet Count 164 10^3/uL (140-450) Mean Platelet Volume 9.5 fL (6.9-10.8) Neutrophils (%) (Auto) 53.0 % (37.0-80.0) Lymphocytes (%) (Auto) 30.4 % (10.0-50.0) Monocytes (%) (Auto) 13.8 % (0.0-12.0) Eosinophils (%) (Auto) 2.4 % (0.0-7.0) Basophils (%) (Auto) 0.4 % (0.0-2.0) Neutrophils # (Auto) 3.7 10 ^3/uL (1.6-8.6) Lymphocytes # (Auto) 2.1 10 ^3/uL (0.4-5.4) Monocytes # (Auto) 1.0 10 ^3/uL (0-1.3) Eosinophils # (Auto) 0.2 10 ^3/uL (0-0.8) Basophils # (Auto) 0 10 ^3/uL (0-0.2) Nucleated Red Blood Cells 0.1 % Sodium Level 139 mmol/L (136-145) Potassium Level 3.7 mmol/L (3.5-5.1) Chloride Level 103 mmol/L (98-107) Carbon Dioxide Level 27 mmol/L (20-31) Anion Gap 9 (5-15) Blood Urea Nitrogen 8 mg/dL (9-23) Creatinine 0.82 mg/dL (0.700-1.30) Glomerular Filtration Rate Calc 95 mL/min (>90) BUN/Creatinine Ratio 9.8 (10.0-20.0) Serum Glucose 85 mg/dL (74-106) Calcium Level 9.3 mg/dL (8.7-10.4) Total Bilirubin 0.5 mg/dL (0.2-1.0) Aspartate Amino Transferase (AST) 24 U/L (13-40) Alanine Aminotransferase (ALT) 21 U/L (7-40) Alkaline Phosphatase 50 U/L (46-116) Total Protein 7.3 g/dL (5.7-8.2) Albumin 4.1 g/dL (3.2-4.8) SARS-CoV-2 Antigen (Rapid) Negative (NEGATIVE) Free Prostate Specific Antigen 0.27 ng/mL (N/A) Percent Free Prostate Specific Ag 15.9 % (.) Prostate Specific Antigen Total 1.7 ng/mL (0.0-4.0) Platelet Estimate Decreased Large Platelets Few Hypochromasia (manual) Moderate Microcytosis Moderate Test 05/07/24 19:17 05/07/24 13:22 Lactic Acid Level 1.8 mmol/L (0.4-2.0) Urine Color Yellow (Yellow) Urine Clarity Turbid (Clear) Urine pH 5.5 (5.0-9.0) Urine Specific [place] 1.024 (1.001-1.035) Urine Protein 1+ (Negative) Urine Ketones Negative (Negative) Urine Blood 2+ /uL (Negative) Urine Nitrite 1+ (Negative) Urine Bilirubin Negative (Negative) Urine Urobilinogen Normal mg/dL (Negative) Urine Leukocyte Esterase 3+ /uL (Negative) Urine RBC 35 /hpf (0 - 3) Urine Microscopic WBC 387 /HPF (0-3) Urine Squamous Epithelial Cells Few /hpf (<5) Urine Bacteria Many /hpf (None Seen) Urine Mucus Few (None Seen) Urine Glucose Normal mg/dL (Normal) Other Laboratory Tests 05/11/24 05:02 Brief Hx & Hospital Course: 68-year-old male with a history of BPH status post surgery obesity hypercholesterolemia recurrent urinary tract infections with ESBL E coli admitted for sepsis secondary to urinary tract infection. he had similar infection 3 times in the past one year. Urine cultures this visit shows E coli started on meropenem 1 g q.8 hours which he will receive for two weeks in the long-term facility. Discussed with the patient and his son and patient will be discharged to long-term facility to receive IV antibiotics for two weeks for his recurrent resistant complicated urinary tract infection. Consults/Reason for consult None Operations or Procedures None Condition at Discharge: Fair Final Diagnosis/Problems List -sepsis secondary to urinary tract infection -complicated cystitis with E coli, continue meropenem q.8 hours -obesity -dyslipidemia -BPH status post surgery Recurrent urinary tract infections Discharge Disposition: Detention Facility Discharge Instruct/Medications Diet: Cardiac 2g Na,low cholest Activity: Light activity Follow Up/Referral: Follow up with the detention Medications: Meropenem 1 g IV q.8 hours for two weeks 35 (Time taken for discharge summary 35 minutes) Discharge Statement: "Patient was advised to return to the ER or call 911 if any headaches, dizziness, shortness of breath, chest pain, abdominal pain, bleeding, fevers, or worsening of medical condition. Patient was counseled about treatment plan, medications, possible side effects, patientverbalized understanding. All questions were answered to the best of my ability. This discharge took greater then 30 minutes in planning, reviewing documentation, counseling the patient, and discussing with other team members." ASSESSMENT ASSESSMENT Hospital Course Improved Assessment -sepsis secondary to urinary tract infection -complicated cystitis with E coli, continue meropenem q.8 hours -obesity -dyslipidemia -BPH status post surgery Recurrent urinary tract infections Date of Service: May 11, 2024 Billing Provider: ANGELICA WEINBERG MD Common Visit Codes: [id number] DISCH DAY >30min ANGELICA WEINBERG MD May 11, 2024 09:16
[2024-05-11 13:00] VITALS: BP 128/68; PULSE 94; RESP 20; TEMP 98.5; O2SAT 98
== END 2024-05-11 17:00 | DRG 872 ==
LOC: ER 13:06 → OVERFLOW 18:53 → CENTRAL 05-08 16:00
PROVIDERS: ADMIT Family Medicine; ATTEND Nurse Practitioner Acute Care
PROC: 05HF33Z Insertion of Infusion Device into Left Cephalic Vein, Percutaneous Approach (ICD-10-PCS; principal; 2024-05-10)
PROC: B54NZZA Ultrasonography of Left Upper Extremity Veins, Guidance (ICD-10-PCS; 2024-05-10)
DX: A41.51 Sepsis due to Escherichia coli [E. coli] (principal); E66.9 Obesity, unspecified; I10 Essential (primary) hypertension; N30.90 Cystitis, unspecified without hematuria; Z20.822 Contact with and (suspected) exposure to COVID-19; N40.0 Benign prostatic hyperplasia without lower urinary tract symptoms; E78.00 Pure hypercholesterolemia, unspecified; Z88.0 Allergy status to penicillin; Z87.440 Personal history of urinary (tract) infections; Z68.32 Body mass index [BMI] 32.0-32.9, adult
CPT/HCPCS: 36415; 76775; 80048; 80053; 81001; 83605; 84154; 85025; 87040; 87086; 87088; 87186; 87426; 96365; 97116; 97163; 97530; G0378; J2185